=== PATIENT | female | born 1995 | race Caucasian/White ===

== ENCOUNTER 2019-05-17 06:31 | Emergency (ER) | payer MEDICAID ==
[~2019-05-17] VITALS: Ht 165.1 cm; Wt 59.0 kg
[2019-05-17 06:34] VITALS: BP 147/90
--- NOTE | 2019-05-17 06:34 | NUR ---
to bed # 09 ambulatory
--- NOTE | 2019-05-17 06:41 | NUR ---
23 Y/O F PRESENTED TO ED WITH C/O EPIGASTRIC ABDOMINAL PAIN X 2DAYS, SUDDEN ONSET. 07/09 PAIN, SHARP AND CONSTANT. DENIES N/V/D. LBM 05/16. LMP 05/13/19. ABDOMEN SOFT, NON-TENDER. BOWEL SOUNDS PRESENT X4 QUADRANTS. NO CHANGES IN FOOD CONSUMPTION OR TRAVEL WITHIN LAST 30 DAYS. BED IN LOWEST POSTION WITH 1 BEDRAIL 1. ERMD NOTIFIED OF PT STATUS. WILL CONTINUE TO MONITOR.
[2019-05-17] MEDS ORDERED: LIDOCAINE VISCOUS 2% 20 ML UDC PO ONE (06:45)
[2019-05-17] MEDS ORDERED: PANTOPRAZOLE 40 MG TABEC PO ONE (06:45)
[2019-05-17] MEDS ORDERED: ALUMINUM HYD/MAG/SIMETHICONE 30 ML UDC PO ONE (06:45)
[2019-05-17] MEDS ORDERED: DICYCLOMINE HCL LIQUID 10 MG/5 ML UDC PO ONE (06:45)
[2019-05-17 07:29] VITALS: BP 147/90
--- NOTE | 2019-05-17 07:29 | NUR ---
Patient discharged with v/s stable. Written and verbal after care instructions given and explained. Patient alert, oriented and verbalized understanding of instructions. Ambulatory with steady gait. All questions addressed prior to discharge. ID band removed. Patient advised to follow up with PMD. Rx of Omeprazole 40mg given. Patient educated on indication of medication including possible reaction and side effects. Opportunity to ask questions provided and answered.
== END 2019-05-17 07:29 | disposition home or self-care (01) ==
LOC: MED 06:31
DX: R10.13 Epigastric pain (principal); R10.811 Right upper quadrant abdominal tenderness; M54.9 Dorsalgia, unspecified
CPT/HCPCS: 81002; 81025; 99284

== ENCOUNTER 2020-05-05 15:25 | Emergency (ER) | payer MEDICAID ==
[~2020-05-05] VITALS: Ht 165.1 cm; Wt 76.4 kg
[2020-05-05 15:38] VITALS: BP 177/105
[2020-05-05] MEDS ORDERED: KETOROLAC 30 MG/ML VIAL IM ONE (15:55)
[2020-05-05 16:22] VITALS: BP 156/117
== END 2020-05-05 16:22 | disposition home or self-care (01) ==
LOC: MED 15:25
DX: I10 Essential (primary) hypertension (principal); R51 Headache
CPT/HCPCS: 96372; 99283; J1885

== ENCOUNTER 2020-06-14 23:30 | Emergency (ER) | payer MEDICAID, OTHER ==
[~2020-06-14] VITALS: Ht 165.1 cm; Wt 74.8 kg
[2020-06-14 23:39] VITALS: BP 162/107
--- NOTE | 2020-06-14 23:42 | NUR ---
ambulated to bed 3 with steady gait.
--- NOTE | 2020-06-14 23:56 | NUR ---
Dr. Tovar examining patient.
--- NOTE | 2020-06-15 00:09 | NUR ---
See complete assessment.
[2020-06-15] MEDS ORDERED: KETOROLAC 30 MG/ML VIAL IM ONE (00:10)
[2020-06-15] MEDS ORDERED: ALUMINUM HYD/MAG/SIMETHICONE 30 ML UDC PO ONE (00:10)
[2020-06-15] MEDS ORDERED: FAMOTIDINE 20 MG TAB PO ONE (00:10)
[2020-06-15 00:24] LABS: BASOPHILS # (AUTO) 0.1 K/uL (0.00-0.22); EOSINOPHILS # (AUTO) 0.2 K/uL (0-0.4); EOSINOPHILS % (AUTO) 3.8 % (0.0-4.0); HEMATOCRIT 37.5 % (36-48); HEMOGLOBIN 12.6 g/dL (12.0-16.0); LYMPHOCYTES # (AUTO) 2.3 K/uL (2.5-16.5); LYMPHOCYTES % (AUTO) 37.5 % (20.5-51.1); MEAN CORPUSCULAR HEMOGLOBIN 29 pg (27-31); MEAN CORPUSCULAR HGB CONC 34 g/dL (33-37); MEAN CORPUSCULAR VOLUME 85.9 fL (80-94); MONOCYTES # (AUTO) 0.6 K/uL (0.8-1.0); MONOCYTES % (AUTO) 9.8 % (1.7-9.3); NEUTROPHILS # (AUTO) 2.9 K/uL (1.8-7.7); NEUTROPHILS % (AUTO) 47.9 % (42.2-75.2); PLATELET COUNT (AUTO) 268 K/uL (140-450); RED BLOOD CELL COUNT(AUTO) 4.37 MIL/uL (4.20-5.40); RED CELL DISTRIBUTION WIDTH 12.5 % (11.6-13.7); WHITE BLOOD COUNT (AUTO) 6.1 K/uL (4.8-10.8)
[2020-06-15 00:44] LABS: ALBUMIN 3.9 g/dL (3.4-5.0); ANION GAP 11.6 (8-16); CARBON DIOXIDE 28.5 mmol/L (21-32); POTASSIUM 4.1 mmol/L (3.5-5.1); TOTAL BILIRUBIN 0.4 mg/dL (0.0-1.0)
[2020-06-15] MEDS ORDERED: DICYCLOMINE HCL LIQUID 10 MG/5 ML UDC PO ONE (01:15)
--- NOTE | 2020-06-15 01:30 | NUR ---
PATIENT STATES NO PAIN AT THIS TIME. WILL CONTINUE TO MONITOR.
--- NOTE | 2020-06-15 02:00 | NUR ---
PATIENT RESTING IN BED QUIETLY. NO DISTRESS NOTED. WILL CONTINUE TO MONITOR.
[2020-06-15 02:36] VITALS: BP 158/98
--- NOTE | 2020-06-15 02:36 | NUR ---
Patient discharged with v/s stable. Written and verbal after care instructions given and explained. Patient verbalized understanding. Ambulatory with steady gait. All questions addressed prior to discharge. Advised to follow up with PMD.
== END 2020-06-15 02:36 | disposition home or self-care (01) ==
LOC: MED 23:30
DX: R10.11 Right upper quadrant pain (principal)
CPT/HCPCS: 36415; 80053; 81002; 81025; 83690; 85025; 96372; 99284; J1885